=== PATIENT | male | born 1970 | race Caucasian/White ===

== ENCOUNTER → 2020-12-08 08:48 | Outpatient (CLI) | payer OTHER, SELFPAY ==
[2020-12-08 13:31] LABS: COVID19 -Nasal RAPID Negative (Negative)
== END ==
PROVIDERS: Family Provider Radiology Diagnostic Radiology; PCP Radiology Diagnostic Radiology; Visit Provider Nurse Practitioner Family
DX: Z01.812 Encounter for preprocedural laboratory examination (principal); Z20.822 Contact with and (suspected) exposure to COVID-19
CPT/HCPCS: 87635

== ENCOUNTER 2020-12-10 09:57 | Day surgery (SDC) | payer OTHER, SELFPAY ==
[2020-12-10] VITALS (8 sets, daily range): BP systolic 115–166; BP diastolic 70–101; PULSE 45–65; RESP 12–18; TEMP 36.3–36.8; O2SAT 94–98; BMI 33.5
[2020-12-10] MEDS: SODIUM CHLORIDE 0.9% 1,000 ML 84 ML IV (10:38)
--- NOTE | 2020-12-10 10:52 | PM.HP.1 ---
History of Present Illness History of Present Illness Date Patient Seen: 12/10/20 Time Patient Seen: 10:52 Chief complaint: SDC Narrative: Asymptomatic Patient History Comment: Hypertension Family & Social History Social History: household members spouse Tobacco & Substance use: Smoking Status Never smoker alcohol intake current alcohol intake frequency a few times a week Substance Use Type does not use Comment: No family history of colon cancer Meds Home Medications and Allergies Home Medications Medication Instructions Recorded Confirmed Type amlodipine 5 mg-benazepril 20 mg cap 12/10/20 History capsule Allergies Allergy/AdvReac Type Severity Reaction Status Date / Time Penicillins Allergy Unknown Verified 12/10/20 10:34 Review of Systems Review of Systems ROS: Yes All systems reviewed with the patient and are negative except as otherwise documented Exam Vital Signs (past 8 hours): - 12/10/20 10:18 12/10/20 10:32 Temperature 97.5 F L Pulse Rate 65 Respiratory Rate 18 Blood Pressure 166/101 H 149/98 H Pulse Oximetry 97 Oxygen Delivery Method Room Air Const General: cooperative and comfortable Orientation: alert HENME Head: normocephalic Ears: external ears normal Nose: external nose normal Face and sinus: normal facial exam Mouth: oral mucosae normal Eyes General: appearance normal, both eyes and all related structures Neck Neck: normal visual inspection Chest Chest: normal inspection of the chest Resp Effort & Inspection: normal respiratory effort Auscultation: clear to auscultation bilaterally Cardio Rate: regular rate Rhythm: regular rhythm Heart Sounds: no murmurs GI Inspection: normal to inspection Palpation: soft and No tender Auscultation: normal bowel sounds Skin General: no rashes or lesions noted and No jaundice Neuro General: patient alert and moves all extremities Cognition: normal cognition Speech: speech normal Extrem General: no pedal edema Psych Appearance: grossly normal Assessment & Plan Assessment & Plan narrative: Indicated for colon cancer screening. Colonoscopy is planned for today. Time Spent With Patient Critical Care time: I spent a total of [] minutes of critical care time on this patient's care today; this time is exclusive of procedural time.
--- NOTE | 2020-12-10 10:54 | PM.PREOP ---
Pre-operative Note COVID-19 COVID-19 status: Negative Result date/Date tested (Pos, Neg/Pending): 12/08/20 Interval Note History & Physical reviewed/Exam performed by Physician: Yes Changes to H&P: No H&P completed within 30 days and has changed as indicated here:: Today ASA Class (for procedural sedation): II
--- NOTE | 2020-12-10 11:46 | PM.OP.ENDO ---
Operative Date/Time/Diagnoses Date of procedure: 12/10/20 Time of procedure: 11:47 Pre-op diagnosis: Colon cancer screening Post-op diagnosis: same Procedure & Clinicians Study performed: Colonoscopy Same procedure as scheduled: Yes Indications: Indicated for colon cancer screening Surgeon: Alejandro Park Procedure Notes SCOAP/Timeout: Done Procedure in detail: After the risks and benefits were explained, written and verbal informed consent was obtained. The patient was brought into the procedure room and placed into the left lateral decubitus position. Conscious sedation medication was applied as per nursing documentation. Digital rectal examination was accomplished. The scope was introduced into the patient and advanced under direct visualization to the cecum as identified by the appendiceal orifice and ileocecal valve. The scope was slowly withdrawn to carefully examine the mucosa for any defects or lesions. Comprehensive imaging was accomplished throughout the rectum including the dentate line. The colon was decompressed, the scope was then removed from the patient who tolerated the procedure well. Bowel prep adequate Adult colonoscope Scope withdrawal time: 6 minutes Sedation minutes: 13 Specimen(s): none sent Complications: none Impression: There was some early diverticula noted in the sigmoid region. No significant polyps mass lesions or inflammatory features identified throughout Endoscopic diagnosis Visually normal appearing colonoscopy to cecum Post-procedure Recommendations: Colonscopy in 10 years Plan for aftercare: Repeat colonoscopy 10 years time sooner should symptoms warrant an earlier exam. Disposition: PACU
--- NOTE | 2020-12-10 11:53 | SUR.PHASEI ---
Received to PACU after colonoscopy with sedation. Report from LUANNE Lizama and JAELYN Lea.
== END 2020-12-10 12:34 | disposition home or self-care (01) ==
PROVIDERS: Family Provider Radiology Diagnostic Radiology; PCP Family Medicine; Referring Provider Internal Medicine Gastroenterology; Visit Provider Internal Medicine Gastroenterology
PROC: 0DJD8ZZ Inspection of Lower Intestinal Tract, Via Natural or Artificial Opening Endoscopic (ICD-10-PCS; CPT 45378; principal; 2020-12-10 11:00)
DX: Z12.11 Encounter for screening for malignant neoplasm of colon (principal); K57.30 Diverticulosis of large intestine without perforation or abscess without bleeding; I10 Essential (primary) hypertension
CPT/HCPCS: G0121